=== PATIENT | female | born 1960 | race Caucasian/White ===

== ENCOUNTER → 2022-05-13 | Outpatient (CLI) | payer BC ==
[2022-05-16 14:11] LABS: HPV 16 Negative (Negative); HPV 18 Negative (Negative); HPV OTHER HR TYPES Negative (Negative)
== END ==
LOC: LAB 14:32 → LAB SHORT 14:32
PROVIDERS: Family Medicine
DX: Z01.419 Encounter for gynecological examination (general) (routine) without abnormal findings (principal)
CPT/HCPCS: 87624; G0145

== ENCOUNTER 2023-01-01 06:50 | Day surgery (SDC) | payer BC ==
[~2023-01-01] VITALS: Ht 160 cm; Wt 80.7 kg
[2023-01-01 09:03] VITALS: BP 124/62
== END 2023-01-01 09:07 | disposition home or self-care (01) ==
LOC: ORSCSDS 06:50
PROVIDERS: Internal Medicine Gastroenterology
PROC: 0DJD8ZZ Inspection of Lower Intestinal Tract, Via Natural or Artificial Opening Endoscopic (ICD-10-PCS; principal; 2023-01-01 08:00)
DX: R15.9 Full incontinence of feces (principal); K57.30 Diverticulosis of large intestine without perforation or abscess without bleeding; K64.4 Residual hemorrhoidal skin tags
CPT/HCPCS: 88305; J2704; J7120